=== PATIENT | female | born 2000 | race Hispanic/Latino ===

== ENCOUNTER 2024-09-02 18:54 | Emergency (ER) | payer SELFPAY ==
[~2024-09-02] VITALS: Ht 157.5 cm; Wt 122.5 kg
[2024-09-02 19:41] LABS: BASOPHILS # (AUTO) 0.05 K/uL (0.00-0.20); BASOPHILS % (AUTO) 0.5 % (0.0-5.0); EOSINOPHILS # (AUTO) 0.18 K/uL (0.00-0.70); EOSINOPHILS % (AUTO) 1.8 % (0.0-8.0); HEMATOCRIT 34.8 % (36-48); IMMATURE GRANULOCYTE ABSOLUTE 0.03 K/uL (0-1); LYMPHOCYTES # (AUTO) 2.2 K/uL (1.0-4.8); LYMPHOCYTES % (AUTO) 21.8 % (21.0-51.0); MEAN CORPUSCULAR HGB CONC 27.3 g/dL (32.0-36.0); MEAN CORPUSCULAR VOLUME 69.7 fL (79-99); MONOCYTES # (AUTO) 0.6 K/uL (0.1-1.0); MONOCYTES % (AUTO) 5.5 % (3.0-13.0); NEUTROPHILS # (AUTO) 7.2 K/uL (1.8-7.7); NEUTROPHILS % (AUTO) 70.1 % (40.0-77.0); PLATELET COUNT (AUTO) 520 K/uL (130-400); RED BLOOD CELL COUNT(AUTO) 4.99 MIL/uL (4.00-5.50); RED CELL DISTRIBUTION WIDTH 21.6 % (11.0-15.5); WHITE BLOOD COUNT (AUTO) 10.3 K/uL (4.8-10.8)
[2024-09-02 19:50] LABS: CREATININE 0.6 mg/dL (0.5-1.0); POTASSIUM 4.1 mmol/L (3.5-5.1)
[2024-09-02 20:42] VITALS: BP 113/73; PULSE 96; RESP 18; TEMP 98.7; O2SAT 99
== END 2024-09-02 20:43 | disposition home or self-care (01) ==
LOC: EDH 18:54
DX: D64.9 Anemia, unspecified (principal); N92.0 Excessive and frequent menstruation with regular cycle
CPT/HCPCS: 36415; 80048; 84702; 85025

== ENCOUNTER 2024-09-07 06:50 | Emergency (ER) | payer SELFPAY ==
[2024-09-07] MEDS: morPHINE 2 MG SYG IVP ONE (07:55)
[2024-09-07] MEDS: ondanSETRON 4MG INJ IVP ONE (07:55)
[2024-09-07] MEDS: FAMOTIDINE 20MG VIAL IV ONE (07:55)
[2024-09-07] MEDS: 0.9%NACL 1000ML 1,000 ML IV ONE (07:56)
[2024-09-07 08:10] LABS: BASOPHILS # (AUTO) 0.03 K/uL (0.00-0.20); BASOPHILS % (AUTO) 0.2 % (0.0-5.0); EOSINOPHILS # (AUTO) 0.03 K/uL (0.00-0.70); EOSINOPHILS % (AUTO) 0.2 % (0.0-8.0); HEMATOCRIT 33.9 % (36-48); IMMATURE GRANULOCYTE ABSOLUTE 0.07 K/uL (0-1); LYMPHOCYTES # (AUTO) 0.9 K/uL (1.0-4.8); MEAN CORPUSCULAR HEMOGLOBIN 18.9 pg (27.0-33.0); MEAN CORPUSCULAR HGB CONC 27.1 g/dL (32.0-36.0); MEAN CORPUSCULAR VOLUME 69.8 fL (79-99); MONOCYTES # (AUTO) 0.4 K/uL (0.1-1.0); MONOCYTES % (AUTO) 2.6 % (3.0-13.0); NEUTROPHILS # (AUTO) 13.3 K/uL (1.8-7.7); NEUTROPHILS % (AUTO) 90.5 % (40.0-77.0); PLATELET COUNT (AUTO) 535 K/uL (130-400); RED BLOOD CELL COUNT(AUTO) 4.86 MIL/uL (4.00-5.50); RED CELL DISTRIBUTION WIDTH 20.2 % (11.0-15.5); WHITE BLOOD COUNT (AUTO) 14.7 K/uL (4.8-10.8)
[2024-09-07 08:40] LABS: ALBUMIN 2.9 g/dL (3.5-5.0); BILIRUBIN,TOTAL 0.3 mg/dL (0.2-1.0); CREATININE 0.7 mg/dL (0.5-1.0); POTASSIUM 3.9 mmol/L (3.5-5.1); TOTAL PROTEIN, SERUM 8.2 g/dL (6.0-8.3)
[2024-09-07] MEDS ORDERED: ONDA-243 PO (10:18)
[2024-09-07 10:59] VITALS: BP 100/60; PULSE 70; RESP 16; TEMP 97.8; O2SAT 100
== END 2024-09-07 11:00 | disposition home or self-care (01) ==
LOC: EDH 06:50
DX: K52.9 Noninfective gastroenteritis and colitis, unspecified (principal); R10.2 Pelvic and perineal pain
CPT/HCPCS: 99285; 96374; 76705; 96361; 96375; 80053; 84702; 83690; 85025; 36415; J3490; J2270; J7030; J2405

== ENCOUNTER 2025-02-11 04:17 | Emergency (ER) | payer SELFPAY ==
[~2025-02-11] VITALS: Ht 157.5 cm; Wt 127.0 kg
[~2025-02-11 04:17] MED LIST: ONDA-243 PO
--- NOTE | 2025-02-11 04:35 | NUR ---
PT CARE ASSUMED AT THIS TIME
[2025-02-11 04:48] LABS: BASOPHILS # (AUTO) 0.05 K/uL (0.00-0.20); BASOPHILS % (AUTO) 0.4 % (0.0-5.0); EOSINOPHILS # (AUTO) 0.25 K/uL (0.00-0.70); EOSINOPHILS % (AUTO) 2.2 % (0.0-8.0); HEMATOCRIT 41.3 % (36-48); IMMATURE GRANULOCYTE ABSOLUTE 0.03 K/uL (0-1); LYMPHOCYTES # (AUTO) 2.5 K/uL (1.0-4.8); MEAN CORPUSCULAR HEMOGLOBIN 20.3 pg (27.0-33.0); MEAN CORPUSCULAR HGB CONC 29.5 g/dL (32.0-36.0); MEAN CORPUSCULAR VOLUME 68.8 fL (79-99); MONOCYTES # (AUTO) 0.6 K/uL (0.1-1.0); MONOCYTES % (AUTO) 5.6 % (3.0-13.0); NEUTROPHILS # (AUTO) 7.8 K/uL (1.8-7.7); NEUTROPHILS % (AUTO) 69.5 % (40.0-77.0); PLATELET COUNT (AUTO) 381 K/uL (130-400); RED CELL DISTRIBUTION WIDTH 18.6 % (11.0-15.5); WHITE BLOOD COUNT (AUTO) 11.2 K/uL (4.8-10.8)
[2025-02-11] MEDS: LOPERAMIDE HCL 2 MG CAP PO ONE (04:52)
[2025-02-11] MEDS: ondanSETRON 4MG INJ IVP ONE ×2 (04:52→07:11)
[2025-02-11] MEDS: morPHINE 2 MG SYG IVP ONE (04:53)
[2025-02-11] MEDS: 0.9% NACL 250ML 250 ML IV ONE (04:54)
[2025-02-11 04:56] LABS: CREATININE 0.6 mg/dL (0.5-1.0); POTASSIUM 3.4 mmol/L (3.5-5.1)
--- NOTE | 2025-02-11 04:59 | ERN ---
ED Note History of Present Illness Stated Complaint: ABD PAIN, DIARRHEA Chief Complaint: Abdominal Pain Time Seen by MD: 04:18 Dictation: This is a 24-year-old female who presented to the emergency room with complaints of upper abdominal pain and diarrhea. She stated that it started yesterday and most of her abdominal pain is in the epigastrium right upper quadrant and left upper quadrant area. She stated that she had multiple episodes of diarrhea loose stool. No fever no hematemesis or melena no other family members are sick. No history of travel or new pets at home. No weight loss loss of appetite Temperature 97 pulse 85 respirations 20 blood pressure 142/83 with a pulse oximetry of 97% on room air Allergies: Coded Allergies: No Known Allergies (Unverified Allergy, Unknown, 09/02/24) No Known Drug Allergies (Unverified Allergy, Unknown, 02/11/25) Home Meds Active Scripts Ondansetron (Ondansetron Odt) 4 Mg Tab.rapdis, 1 TAB PO Q6HPRN PRN for nausea/vomiting for 3 Days, #10 TAB 0 Refills Prov:DESMOND DELUNA DO 02/11/25 Ondansetron (Ondansetron Odt) 4 Mg Tab.rapdis, 4 MG PO BID for 5 Days, #10 TAB Prov:MICHAELA LOYOLA MD 09/07/24 Past Medical History Past Medical History: No Pertinent History, Anemia Surgical History: None Family History: Negative Social History: Negative LMP: Jan 18, 2025 RN Note Reviewed/Agreed w/PFSH: Yes Review of System Dictation Constitutional: Negative for fever,chills, and weight loss Eyes: Negative for injury, pain,redness, and discharge ENT: Negative for injury,pain or swelling Cardiovascular: Negative for chest pain, palpitations, and edema Respiratory: Negative for shortness of breath, cough, and wheezing, Abdomen/GI: Positive for abdominal pain, diarrhea, and denies constipation nausea, vomiting, she denies taking any laxatives Back: Negative for injury and pain : Negative for injury, bleeding and discharge MS/Extremity: Negative for injury and deformity Skin: Negative for rash, and discoloration Neuro: Negative for headache, weakness, numbness, tingling, and seizure Psych: Negative for suicide ideation, homicidal ideation, and hallucinations Initial Vital Sign VS Vital Signs Date Time Temp Pulse Resp B/P (MAP) Pulse Ox O2 Delivery O2 Flow Rate FiO2 02/11/25 04:18 97.2 85 20 142/83 100 Room Air 02/11/25 04:35 0 21 Physical Exam Dictation General: awake, alert, NAD extremely obese Head/Face: Normocephalic, atraumatic cushingoid Eyes: PERRL, EOMI, vision at baseline ENT: oral cavity clear, TMs clear, no signs of infection dark pigmentation below the lower lip Neck: Trachea midline, supple, no nuchal rigidity short and thick Cardiovascular: RRR, normal S1/S2, No MRGs, no JVD Respiratory: CTAB, no respiratory distress, No rales or wheezes Abdomen: Soft, mild tenderness to deep palpation of the right upper quadrant epigastrium and left upper quadrant., non-distended, normal bowel sounds, no guarding or rebound. Skin: Warm, dry, normal turgor, warty lesions with scabs-chronic per patient MS/Extremity: Pulses equal, no cyanosis, neurovascular intact, FROM Neuro: COAx4, GCS 15, strength 5/5, CN 2-12 intact, normal cerebellar exam, normal gait, Psych: Normal behavior, mood, and affect normal Extremities-trace edema without any palpable cords, Homans sign is negative Results (Laboratory/Radiology) Laboratory/Radiology Laboratory Tests Test 02/11/25 04:33 White Blood Count 11.2 K/uL (4.8-10.8) H Red Blood Count 6.00 MIL/uL (4.00-5.50) H Hemoglobin 12.2 g/dL (12.0-16.0) Hematocrit 41.3 % (36-48) Mean Corpuscular Volume 68.8 fL (79-99) L Mean Corpuscular Hemoglobin 20.3 pg (27.0-33.0) L Mean Corpuscular Hemoglobin Concent 29.5 g/dL (32.0-36.0) L Red Cell Distribution Width 18.6 % (11.0-15.5) H Platelet Count 381 K/uL (130-400) Mean Platelet Volume 9.1 fL (7.5-10.5) Immature Granulocyte % (Auto) 0.3 % (0-1) Neutrophils (%) (Auto) 69.5 % (40.0-77.0) Lymphocytes (%) (Auto) 22.0 % (21.0-51.0) Monocytes (%) (Auto) 5.6 % (3.0-13.0) Eosinophils (%) (Auto) 2.2 % (0.0-8.0) Basophils (%) (Auto) 0.4 % (0.0-5.0) Neutrophils # (Auto) 7.8 K/uL (1.8-7.7) H Lymphocytes # (Auto) 2.5 K/uL (1.0-4.8) Monocytes # (Auto) 0.6 K/uL (0.1-1.0) Eosinophils # (Auto) 0.25 K/uL (0.00-0.70) Basophils # (Auto) 0.05 K/uL (0.00-0.20) Absolute Immature Granulocyte (auto 0.03 K/uL (0-1) Nucleated Red Blood Cells 0.0 % (0.0-0.19) Red Blood Cell Morphology See comments Sodium Level 134 mmol/L (136-145) L Potassium Level 3.4 mmol/L (3.5-5.1) L Chloride Level 98 mmol/L (101-111) L Carbon Dioxide Level 31 mmol/L (21-32) Blood Urea Nitrogen 8 mg/dL (7-18) Creatinine 0.6 mg/dL (0.5-1.0) Glomerular Filtration Rate Calc 128 mL/min (>90) Random Glucose 207 mg/dL (70-105) H Total Calcium 8.9 mg/dL (8.5-10.1) Lipase 17 U/L (16-77) Labs Reviewed?: Yes ED Course ED Course Orders Procedure Category Date Status Time Cbc With Differential LAB 02/11/25 Complete 04:36 Morphine 2mg Syg PHA 02/11/25 Complete (Morphine 2mg Syg) 05:00 Ondansetron 4mg Inj PHA 02/11/25 Complete (Zofran 4mg Inj) 05:00 Lipase LAB 02/11/25 Complete 04:36 Basic Metabolic Panel LAB 02/11/25 Complete 04:36 Loperamide Hcl 2 Mg PHA 02/11/25 Complete Cap (Imodium) 05:00 0.9% Nacl 250ml (Ns PHA 02/11/25 Complete 250ml) 05:00 Ondansetron 4mg Inj PHA 02/11/25 Complete (Zofran 4mg Inj) 07:00 Morphine 4mg Syg PHA 02/11/25 Complete (Morphine 4mg Syg) 07:00 Current Medications Medications (Trade) Dose Ordered Sig/Dianna Route PRN Reason Start Time Stop Time Status Last Admin Dose Admin Loperamide HCl (Imodium) 2 mg ONCE ONCE PO 02/11/25 05:00 02/11/25 05:01 DC 02/11/25 04:52 Morphine Sulfate (morPHINE 2MG SYG) 2 mg ONCE ONCE IVP 02/11/25 05:00 02/11/25 05:01 DC 02/11/25 04:53 Morphine Sulfate (morPHINE 4MG SYG) 4 mg ONCE ONCE IVP 02/11/25 07:00 02/11/25 07:01 DC 02/11/25 07:11 Ondansetron HCl (zoFRAN 4MG INJ) 4 mg ONCE ONCE IVP 02/11/25 05:00 02/11/25 05:01 DC 02/11/25 04:52 Ondansetron HCl (zoFRAN 4MG INJ) 4 mg ONCE ONCE IVP 02/11/25 07:00 02/11/25 07:01 DC 02/11/25 07:11 Sodium Chloride 250 ml @ 0 mls/hr ONCE ONCE IV 02/11/25 05:00 02/11/25 05:01 DC 02/11/25 04:54 Vital Signs Date Time Temp Pulse Resp B/P (MAP) Pulse Ox O2 Delivery O2 Flow Rate FiO2 02/11/25 08:09 98.1 80 16 112/58 100 Room Air* 0 02/11/25 06:57 88 16 129/52 98 Room Air* 0 02/11/25 05:46 80 17 130/77 98 Room Air* 0 02/11/25 04:35 98.1 81 20 130/68 98 Room Air* 0 02/11/25 04:18 97.2 85 20 142/83 100 Room Air We will perform diagnostic labs, and administer medications according to the patient's complaint. Once the results are available, will review and personally interpreted the labs to rule out any acute life-threatening emergency the trach require immediate intervention and treatment. I will then re-evaluate the patient after treatment and diagnostic exams have return to determine whether the patient requires any further testing, can safely be discharged home or need further admission to hospital for additional treatment and evaluation. 5:21 a.m. labs reviewed CBC showed a white count of 11.2, hemoglobin 12.2 platelets 381. BNP 7 showed a sodium of 134 potassium 3.4 BUN and creatinine are 8 and 0.6. Lipase is 17. Abdominal exam is very benign, we will continue IV fluids and antidiarrheal. Medical Decision Making MDM MDM: Differential diagnosis: Gastroenteritis, colitis Rationale: Tests considered and ordered secondary to shared decision making incl ude: Previous outside records reviewed: Old ER visits. Risk of complication and/or morbidity or mortality of patient management: None Medications-Per medication reconciliation Need for hospitalization: Patient does not meet criteria for hospitalization. Need for emergency major/minor surgery: No There are no social concerns with this patient. Prescription drug management Prescriptions will include symptomatic care Patient's prior external medical records from other ER visits were reviewed by me as indicated. Prior testing and results from previous visits were reviewed. Prior tests were taken into account with medical decision making and resource utilization, independent historian/historians were used to obtain complete medical history. I independently interpreted the test that were performed, results were reviewed by me and considered findings on radiology if ordered. Medical management and examination interpretation discussions were had by me with other qualified healthcare professionals as indicated for the patient's care. Problem List Problem List: (1) Upper abdominal pain (2) Diarrhea DX & DISP Disposition: Discharge Departure Impression: Primary Impression: Acute gastroenteritis Additional Impressions: Upper abdominal pain, Diarrhea Condition: Stable Scripts Ondansetron (Ondansetron Odt) 4 Mg Tab.rapdis 1 TAB PO Q6HPRN PRN for nausea/vomiting for 3 Days, #10 TAB 0 Refills Prov: DESMOND DELUNA DO 02/11/25 Additional Instructions: Your symptoms are consistent with gastroenteritis. This is generally caused by a virus or food toxicity. This will often clear on its own with time. Your vital signs have been stable here in the ED. Your labwork (CBC, BMP, li pase) is unremarkable. I have prescribed zofran ODT. Use this medication as needed for vomiting. Drink plenty of liquids. An electrolyte solution such as gatorade is a good choice. Start with the BRAT (bananas, rice, applesauce, toast) diet. Advance your diet as tolerated. You can take over the counter tylenol or ibuprofen as needed for pain. Please follow up with your primary doctor within 2 days. Return to the ED as needed. Patient and the caregiver have been informed of all the diagnostic tests and the imaging conducted during the today's visit to the emergency room and has verbalized understanding of the results I have personally reviewed and interpreted all diagnostic exams performed here in the ER today as well as the vital signs documented by the nursing staff. The patient is now being discharged to home and should follow up with the primary care physician or the specialist as directed by the ER staff. Follow-up with primary care provider in 1 to 2 days. Take medications as directed here in the emergency room. Okay to continue home medications unless otherwise discussed during your visit in the emergency room today. Return to your nearest emergency room if symptoms worsen or if there is no improvement. Call 911 if you need immediate assistance. Take Tylenol or Motrin [id number] as needed and if no contraindications are present. Increase oral hydration. A wound culture or urine culture was ordered here in the emergency room department please follow-up with primary care provider and advise them to get repeat ports from our facility. If you had any Justino wrap/splints that were applied here, please do not remove them until you see your primary care or specialty. Referrals: SELF,REFERRAL (PCP) MARTA JOEL MD Feb 11, 2025 04:59 DESMOND DELUNA DO Feb 11, 2025 07:56
[2025-02-11] MEDS: morPHINE 4 MG SYG IVP ONE (07:11)
--- NOTE | 2025-02-11 07:19 | NUR ---
REPORT GIVEN TO CHARGE NURSE AT THIS TIME
[2025-02-11] MEDS ORDERED: ONDA-243 PO (08:01)
[2025-02-11 08:09] VITALS: BP 112/58; PULSE 80; RESP 16; TEMP 98; O2SAT 100
== END 2025-02-11 08:22 | disposition home or self-care (01) ==
LOC: EDH 04:17
DX: K52.9 Noninfective gastroenteritis and colitis, unspecified (principal); Z79.899 Other long term (current) drug therapy
CPT/HCPCS: 99285; 96374; 96375; 80048; 83690; 85025; 36415; 96376; J2270 ×2; J2405 ×2; J7050

== ENCOUNTER 2025-04-25 20:08 | Emergency (ER) | payer SELFPAY ==
[~2025-04-25] VITALS: Ht 157.5 cm; Wt 120.7 kg
--- NOTE | 2025-04-25 20:35 | ERN ---
General Chief Complaint: Vaginal Problems/Bleeding Stated Complaint: MULTIPLE Time Seen by MD: 20:10 Time Seen by Midlevel: 20:10 Source: patient History of Present Illness Initial Comments 25-year-old female who presents to the emergency department due to heavy vaginal bleeding. Patient reports it has been going off and on for the past 2-1/2 months. Patient has a history of anemia for which she takes oral iron. Patient states she has not been seen by OB and has a follow up appointment with PCP in two days. Denies any further significant past medical history. Allergies: Coded Allergies: No Known Allergies (Unverified Allergy, Unknown, 09/02/24) No Known Drug Allergies (Unverified Allergy, Unknown, 02/11/25) Home Meds Active Scripts Ondansetron (Ondansetron Odt) 4 Mg Tab.rapdis, 1 TAB PO Q6HPRN PRN for nausea/vomiting for 3 Days, #10 TAB 0 Refills Prov:DESMOND DELUNA DO 02/11/25 Ondansetron (Ondansetron Odt) 4 Mg Tab.rapdis, 4 MG PO BID for 5 Days, #10 TAB Prov:MICHAELA LOYOLA MD 09/07/24 Past Medical History Past Medical History: Anemia Past Surgical History: None Family History Family History: Negative Social History Social History: Negative Female( History) LMP: Apr 25, 2025 ROS Dictation Constitutional: Negative for fever,chills, and weight loss Eyes: Negative for injury, pain,redness, and discharge ENT: Negative for injury,pain or swelling Cardiovascular: Negative for chest pain, palpitations, and edema Respiratory: Negative for shortness of breath, cough, and wheezing, Abdomen/GI: Negative for abdominal pain, nausea, vomiting, diarrhea, and constipation Back: Negative for injury and pain : Positive for vaginal bleeding Negative for painful urination, bleeding or discharge MS/Extremity: Negative for injury and deformity Skin: Negative for rash, and discoloration Neuro: Negative for headache, weakness, numbness, tingling, and seizure Psych: Negative for suicide ideation, homicidal ideation, and hallucinations Physical Exam Physical Exam Dictation General: awake, alert, no acute distress Head/Face: Normocephalic, atraumatic Eyes: PERRL, EOMI, normal conjunctiva ENT: oral cavity clear, oral mucosa moist Neck: Supple, normal range of motion Cardiovascular: RRR, normal S1/S2 Respiratory: CTAB, no respiratory distress, no rales or wheezes Abdomen: Soft, non-tender, non-distended, normal bowel sounds, no guarding or rebound. Skin: Warm, dry, normal turgor, no rash MS/Extremity: Pulses equal, no cyanosis, neurovascular intact, FROM Neuro: COAx4, GCS 15, strength 5/5, CN 2-12 intact, normal cerebellar exam, normal gait Psych: Normal behavior, mood, and affect normal Results Laboratory and Microbiology Lab and Micro Result Laboratory Tests Test 04/25/25 20:37 04/25/25 20:44 Urine Color YELLOW (YELLOW) Urine Appearance CLOUDY (CLEAR) H Urine pH 7.0 (5.0-8.0) Urine Specific [place] 1.021 (1.001-1.031) Urine Protein 30 mg/dL (NEGATIVE) H Urine Glucose (UA) 200 mg/dL (NEGATIVE) H Urine Ketones NEGATIVE mg/dL (NEGATIVE) Urine Occult Blood LARGE (NEGATIVE) H Urine Nitrate NEGATIVE (NEGATIVE) Urine Bilirubin NEGATIVE mg/dL (NEGATIVE) Urine Urobilinogen 3 mg/dL (0.2-1.0) H Urine Leukocyte Esterase NEGATIVE [place]/uL Urine RBC >100 /HPF (0-1) H Urine WBC 2-5 /HPF (0-1) H Urine Squamous Epithelial Cells RARE /HPF (0-2) Urine Other Crystals (Auto) 12 /HPF (None Seen) Urine Bacteria RARE /HPF (None Seen) White Blood Count 12.6 K/uL (4.8-10.8) H Red Blood Count 4.20 MIL/uL (4.00-5.50) Hemoglobin 7.7 g/dL (12.0-16.0) L Hematocrit 28.2 % (36-48) L Mean Corpuscular Volume 67.1 fL (79-99) L Mean Corpuscular Hemoglobin 18.3 pg (27.0-33.0) L Mean Corpuscular Hemoglobin Concent 27.3 g/dL (32.0-36.0) L Red Cell Distribution Width 19.2 % (11.0-15.5) H Platelet Count 456 K/uL (130-400) H Mean Platelet Volume 8.9 fL (7.5-10.5) Immature Granulocyte % (Auto) 0.6 % (0-1) Neutrophils (%) (Auto) 71.0 % (40.0-77.0) Lymphocytes (%) (Auto) 21.3 % (21.0-51.0) Monocytes (%) (Auto) 5.5 % (3.0-13.0) Eosinophils (%) (Auto) 1.4 % (0.0-8.0) Basophils (%) (Auto) 0.2 % (0.0-5.0) Neutrophils # (Auto) 9.0 K/uL (1.8-7.7) H Lymphocytes # (Auto) 2.7 K/uL (1.0-4.8) Monocytes # (Auto) 0.7 K/uL (0.1-1.0) Eosinophils # (Auto) 0.18 K/uL (0.00-0.70) Basophils # (Auto) 0.03 K/uL (0.00-0.20) Absolute Immature Granulocyte (auto 0.07 K/uL (0-1) Nucleated Red Blood Cells 0.0 % (0.0-0.19) Red Blood Cell Morphology See comments Prothrombin Time 10.6 SEC (9.6-11.6) Prothromb Time International Ratio 1.00 (0.85-1.15) Activated Partial Thromboplast Time 27.4 SEC (26.3-35.5) Sodium Level 137 mmol/L (136-145) Potassium Level 3.5 mmol/L (3.5-5.1) Chloride Level 103 mmol/L (101-111) Carbon Dioxide Level 29 mmol/L (21-32) Blood Urea Nitrogen 6 mg/dL (7-18) L Creatinine 0.5 mg/dL (0.5-1.0) Glomerular Filtration Rate Calc 133 mL/min (>90) Random Glucose 176 mg/dL (70-105) H Total Calcium 8.4 mg/dL (8.5-10.1) L Iron Level 11 mcg/dL (50-170) L Total Iron Binding Capacity 410 mcg/dL (250-450) Percent Iron Saturation 2.6 % (22-44) L Serum Test, Qualitative NEGATIVE (NEGATIVE) Labs Reviewed?: Yes EKG/XRAY/US/CT/MRI Ultrasound Comment REASON: Heavy vaginal bleeding ORDERING PHYSICIAN: CHAYO DE LA PAZ PROCEDURE: PELVCOMP - US PELVIC NON-OB COMP US PELVIC NON-OB COMP HISTORY: Heavy vaginal bleeding TECHNIQUE: Real-time pelvic ultrasound was performed. FINDINGS: Uterus measures 8.1 cm. Mildly thickened endometrium measuring 3 cm in thickness. Right ovary measures 2.7 cm and left ovary measures 2.7 cm. No free fluid in the cul-de-sac. IMPRESSION: Thickened endometrium measures 3 cm which may may be related to patient's menstrual cycle. DICTATED BY: JORDY CALDERON MD DATE: 04/25/252147 [facility] MDM: Differential diagnosis: Anemia, abnormal uterine bleeding, UTI Rationale: 25-year-old female who presents to the emergency department due to heavy vaginal bleeding. Patient reports it has been going off and on for the past 2-1/2 months. Patient has a history of anemia for which she takes oral iron. Patient states she has not been seen by OB and has a follow up appointment with PCP in two days. Denies any further significant past medical history. Labs obtained indicate mild WBC elevation of 12.6, anemia with hemoglobin of 7.7, coagulation within normal limits. UA negative for urinary tract infections. Pelvic ultrasound obtained indicating thickened endometrium measuring 3 cm which may be related to patient's menstrual cycle, bilateral ovaries noted with blood flow. Patient is educated on findings and diagnosis. Patient was educated on the importance of continue taking her iron supplementa tion. Advised to follow up with PCP. Return to the emergency department if any worsening symptoms. Patient verbalized understanding. Patient stable for discharge. There are no social concerns with this patient. I independently interpreted the test that were performed, results were reviewed by me and considered findings on radiology if ordered. Medical management and examination interpretation discussions were had by me with other qualified healthcare professionals as indicated for the patient's care. ED Course Orders Procedure Category Date Status Time Cbc With Differential LAB 04/25/25 Complete 20:24 Basic Metabolic Panel LAB 04/25/25 Complete 20:24 Pt And Ptt LAB 04/25/25 Complete 20:24 Urinalysis LAB 04/25/25 Complete W/Microscopic 20:24 Testing, LAB 04/25/25 Complete Serum Hcg 20:24 Us Pelvic Non-Ob Comp US 04/25/25 Resulted 20:24 Iron Panel With %Sat LAB 04/25/25 Complete 20:28 Vital Signs Date Time Temp Pulse Resp B/P (MAP) Pulse Ox O2 Delivery O2 Flow Rate FiO2 04/25/25 22:15 98.2 81 18 118/62 98 Room Air* 0 21 04/25/25 20:49 81 18 125/67 100 Room Air* 0 21 04/25/25 20:16 98.2 101 20 124/75 98 Room Air DX & DISP Disposition: Discharge Departure Impression: Primary Impression: Anemia Additional Impression: Heavy menstrual period Condition: Stable Additional Instructions: Discharge home. Rest. Follow up with primary care in 24 hours. Return to the ER for any acute changes or worsening symptoms. If any medications were prescribed take as directed. Okay to continue home medications unless otherwise discussed during your visit in the emergency room today. Patient was also advised to follow-up with primary care physician in 1 to 2 days for continued monitoring. Referrals: SELF,REFERRAL (PCP) I performed the substantive portion of the visit. I have reviewed and personally made and approve the management plan that is documented in the notes by myself or the ARA. I acknowledge full responsibility for the patient's management plan. CHAYO DE LA PAZ Apr 25, 2025 20:35
[2025-04-25 20:54] LABS: BASOPHILS # (AUTO) 0.03 K/uL (0.00-0.20); BASOPHILS % (AUTO) 0.2 % (0.0-5.0); EOSINOPHILS # (AUTO) 0.18 K/uL (0.00-0.70); EOSINOPHILS % (AUTO) 1.4 % (0.0-8.0); HEMATOCRIT 28.2 % (36-48); IMMATURE GRANULOCYTE ABSOLUTE 0.07 K/uL (0-1); LYMPHOCYTES # (AUTO) 2.7 K/uL (1.0-4.8); LYMPHOCYTES % (AUTO) 21.3 % (21.0-51.0); MEAN CORPUSCULAR HEMOGLOBIN 18.3 pg (27.0-33.0); MEAN CORPUSCULAR HGB CONC 27.3 g/dL (32.0-36.0); MEAN CORPUSCULAR VOLUME 67.1 fL (79-99); MONOCYTES # (AUTO) 0.7 K/uL (0.1-1.0); MONOCYTES % (AUTO) 5.5 % (3.0-13.0); PLATELET COUNT (AUTO) 456 K/uL (130-400); RED CELL DISTRIBUTION WIDTH 19.2 % (11.0-15.5); WHITE BLOOD COUNT (AUTO) 12.6 K/uL (4.8-10.8)
[2025-04-25 20:59] LABS: APPEARANCE,URINE CLOUDY (CLEAR); BILIRUBIN,URINE NEGATIVE (NEGATIVE); COLOR,URINE YELLOW (YELLOW); GLUCOSE, URINE (UA) 200 mg/dL (NEGATIVE); KETONES,URINE NEGATIVE (NEGATIVE); LEUKOCYTE ESTERASE ,URINE NEGATIVE Leu/uL (NEGATIVE); NITRATE,URINE NEGATIVE (NEGATIVE); OCCULT BLOOD,URINE LARGE (NEGATIVE); PROTEIN,URINE 30 mg/dL (NEGATIVE); UROBILINOGEN,URINE 3 mg/dL (0.2-1.0)
[2025-04-25 21:01] LABS: CREATININE 0.5 mg/dL (0.5-1.0); POTASSIUM 3.5 mmol/L (3.5-5.1)
[2025-04-25 21:05] LABS: PROTHROMBIN TIME 10.6 SEC (9.6-11.6)
[2025-04-25 21:06] LABS: PARTIAL THROMBOPLASTIN TIME 27.4 SEC (26.3-35.5)
[2025-04-25 21:10] LABS: % IRON SATURATION 2.6 % (22-44)
[2025-04-25 21:22] LABS: BACTERIA,URINE RARE /HPF (None Seen); MUCUS,URINE RARE LPF (None Seen); RBC,URINE >100 /HPF (0-1); SQUAMOUS EPITHELIAL CELL,UR RARE /HPF (0-2); UNCLASSIFIED CRYSTAL 12 /HPF (None Seen)
--- NOTE | 2025-04-25 21:51 | HMCIMG ---
US PELVIC NON-OB COMP HISTORY: Heavy vaginal bleeding TECHNIQUE: Real-time pelvic ultrasound was performed. FINDINGS: Uterus measures 8.1 cm. Mildly thickened endometrium measuring 3 cm in thickness. Right ovary measures 2.7 cm and left ovary measures 2.7 cm. No free fluid in the cul-de-sac. IMPRESSION: Thickened endometrium measures 3 cm which may may be related to patient's menstrual cycle.
[2025-04-25 22:15] VITALS: BP 118/62; PULSE 81; RESP 18; TEMP 98.2; O2SAT 98
== END 2025-04-25 22:18 | disposition home or self-care (01) ==
LOC: EDH 20:08
DX: D64.9 Anemia, unspecified (principal); N92.0 Excessive and frequent menstruation with regular cycle; Z79.899 Other long term (current) drug therapy
CPT/HCPCS: 36415; 76856; 80048; 81001; 83540; 83550; 84703; 85025; 85610; 85730; 99284

== ENCOUNTER 2025-11-09 10:46 | Emergency (ER) | payer SELFPAY ==
[~2025-11-09] VITALS: Ht 157.5 cm; Wt 118.4 kg
[2025-11-09 11:22] LABS: IMMATURE GRANULOCYTE ABSOLUTE 0.05 K/uL (0-1); NUCLEATED RED BLOOD CELLS 0.0 % (0.0-0.19); PLATELET COUNT (AUTO) 425 K/uL (130-400); RED BLOOD CELL COUNT(AUTO) 5.09 MIL/uL (4.00-5.50); RED CELL DISTRIBUTION WIDTH 20.8 % (11.0-15.5); WHITE BLOOD COUNT (AUTO) 12.5 K/uL (4.8-10.8)
[2025-11-09] MEDS: 0.9%NACL 1000ML 1,000 ML IV STA (11:22)
[2025-11-09 11:33] LABS: CREATININE 0.6 mg/dL (0.5-1.0); GLOMERULAR FILTR. RATE CALC 128.0 mL/min (>90); GLUCOSE,RANDOM 178.0 mg/dL (70-105); SODIUM SERUM 136.0 mmol/L (136-145); UREA NITROGEN, BLOOD 7.0 mg/dL (7-18)
[2025-11-09 11:43] LABS: ASPARTATE AMINOTRANSFERASE 43.0 U/L (10-37); HCG,QUANTITATIVE 0.0 mIU/mL (0-5); TOTAL PROTEIN, SERUM 7.9 g/dL (6.0-8.3)
[2025-11-09 13:24] LABS: APPEARANCE,URINE CLEAR (CLEAR); GLUCOSE, URINE (UA) NEGATIVE (NEGATIVE); LEUKOCYTE ESTERASE ,URINE NEGATIVE Leu/uL (NEGATIVE); NITRATE,URINE NEGATIVE (NEGATIVE); OCCULT BLOOD,URINE NEGATIVE (NEGATIVE)
[2025-11-09 13:32] LABS: ADD UA MICROSCOPIC YES
[2025-11-09 13:36] LABS: SQUAMOUS EPITHELIAL CELL,UR RARE /HPF (0-2)
--- NOTE | 2025-11-09 14:15 | HMCIMG ---
EXAM: US Abdomen, Right Upper Quadrant. CLINICAL HISTORY: ruq pain w/ vomiting TECHNIQUE: Right upper quadrant sonography performed with image documentation. COMPARISON: None provided. FINDINGS: LIVER: Liver measures approximately 14 cm in craniocaudal length. Diffuse increased echogenicity is noted, consistent with hepatic steatosis. No focal hepatic mass is seen. GALLBLADDER: Gallbladder wall thickness measures approximately 2 mm. No definite gallstones are visualized. COMMON BILE DUCT: CBD is obscured on the present examination. PANCREAS: The visualized pancreas appears within normal limits. Distal pancreas is obscured by bowel gas. RIGHT KIDNEY: Right kidney measures approximately 12.9 5.8 6.2 cm. Normal renal contours are maintained. No renal mass, calculus, or hydronephrosis is seen. IMPRESSION: Diffuse hepatic steatosis. Limited examination due to large body habitus. /[place]
--- NOTE | 2025-11-09 14:19 | ERN ---
ED Note History of Present Illness Stated Complaint: NAUSEA, VOMITING, DIARRHEA, ABDOMINAL PAIN Chief Complaint: Nausea,Vomiting,Diarrhea Time Seen by MD: 10:49 Time Seen by Midlevel: 10:52 Dictation: 25-year-old female coming in with complaining of right epigastric pain radiating to the epigastric region for three days with nausea and vomiting. Patient also states last Friday she got her 1st shot of Ozempic. Patient states she has a history of diabetes and anemia. LMP last week. Now diarrhea no chest pain or chest discomfort. Allergies: Coded Allergies: No Known Allergies (Unverified Allergy, Unknown, 09/02/24) No Known Drug Allergies (Unverified Allergy, Unknown, 02/11/25) Home Meds Active Scripts Ondansetron (Ondansetron Odt) 4 Mg Tab.rapdis, 1 TAB PO Q6HPRN PRN for nausea/vomiting for 3 Days, #10 TAB 0 Refills Prov:DESMOND DELUNA DO 02/11/25 Ondansetron (Ondansetron Odt) 4 Mg Tab.rapdis, 4 MG PO BID for 5 Days, #10 TAB Prov:MICHAELA LOYOLA MD 09/07/24 Past Medical History Past Medical History: Anemia, Diabetes-Type II Surgical History: None Family History: Negative Social History: Negative Review of System Dictation Constitutional: Negative for fever,chills, and weight loss Eyes: Negative for injury, pain,redness, and discharge ENT: Negative for injury,pain or swelling Cardiovascular: Negative for chest pain, palpitations, and edema Respiratory: Negative for shortness of breath, cough, and wheezing, Abdomen/GI: Epigastric pain, right upper quadrant pain with nausea and vomiting Back: Negative for injury and pain : Negative for injury, bleeding and discharge MS/Extremity: Negative for injury and deformity Skin: Negative for rash, and discoloration Neuro: Negative for headache, weakness, numbness, tingling, and seizure Psych: Negative for suicide ideation, homicidal ideation, and hallucinations Review of Systems: was completed Initial Vital Sign VS Vital Signs Date Time Temp Pulse Resp B/P (MAP) Pulse Ox O2 Delivery O2 Flow Rate FiO2 11/09/25 10:47 98.2 77 16 112/73 96 Room Air 0 11/09/25 14:07 21 Physical Exam Dictation General: awake, alert, NAD Head/Face: Normocephalic, atraumatic Eyes: PERRL, EOMI, vision at baseline ENT: oral cavity clear, TMs clear, no signs of infection Neck: Trachea midline, supple, no nuchal rigidity Cardiovascular: RRR, normal S1/S2, No MRGs, no JVD Respiratory: CTAB, no respiratory distress, No rales or wheezes Abdomen: Soft, non-tender, non-distended, normal bowel sounds, no guarding or rebound. Skin: Warm, dry, normal turgor, no rash MS/Extremity: Pulses equal, no cyanosis, neurovascular intact, FROM Neuro: COAx4, GCS 15, strength 5/5, CN 2-12 intact, normal cerebellar exam, normal gait, Psych: Normal behavior, mood, and affect normal Results (Laboratory/Radiology) Laboratory/Radiology Laboratory Tests Test 11/09/25 11:19 11/09/25 13:00 White Blood Count 12.5 K/uL (4.8-10.8) H Red Blood Count 5.09 MIL/uL (4.00-5.50) Hemoglobin 9.5 g/dL (12.0-16.0) L Hematocrit 35.3 % (36-48) L Mean Corpuscular Volume 69.4 fL (79-99) L Mean Corpuscular Hemoglobin 18.7 pg (27.0-33.0) L Mean Corpuscular Hemoglobin Concent 26.9 g/dL (32.0-36.0) L Red Cell Distribution Width 20.8 % (11.0-15.5) H Platelet Count 425 K/uL (130-400) H Mean Platelet Volume 9.2 fL (7.5-10.5) Immature Granulocyte % (Auto) 0.4 % (0-1) Neutrophils (%) (Auto) 90.6 % (40.0-77.0) H Lymphocytes (%) (Auto) 6.1 % (21.0-51.0) L Monocytes (%) (Auto) 2.4 % (3.0-13.0) L Eosinophils (%) (Auto) 0.2 % (0.0-8.0) Basophils (%) (Auto) 0.3 % (0.0-5.0) Neutrophils # (Auto) 11.4 K/uL (1.8-7.7) H Lymphocytes # (Auto) 0.8 K/uL (1.0-4.8) L Monocytes # (Auto) 0.3 K/uL (0.1-1.0) Eosinophils # (Auto) 0.03 K/uL (0.00-0.70) Basophils # (Auto) 0.04 K/uL (0.00-0.20) Absolute Immature Granulocyte (auto 0.05 K/uL (0-1) Nucleated Red Blood Cells 0.0 % (0.0-0.19) White Cell Morphology Comment See comments Red Blood Cell Morphology See comments Sodium Level 136 mmol/L (136-145) Potassium Level 3.9 mmol/L (3.5-5.1) Chloride Level 102 mmol/L (101-111) Carbon Dioxide Level 26 mmol/L (21-32) Blood Urea Nitrogen 7 mg/dL (7-18) Creatinine 0.6 mg/dL (0.5-1.0) Glomerular Filtration Rate Calc 128 mL/min (>90) Random Glucose 178 mg/dL (70-105) H Total Calcium 8.6 mg/dL (8.5-10.1) Total Bilirubin 0.3 mg/dL (0.2-1.0) Direct Bilirubin 0.1 mg/dL (0.0-0.3) Aspartate Amino Transf (AST/SGOT) 43 U/L (10-37) H Alanine Aminotransferase (ALT/SGPT) 30 U/L (12-78) Alkaline Phosphatase 90 U/L (50-136) Total Protein 7.9 g/dL (6.0-8.3) Albumin 2.5 g/dL (3.5-5.0) L Lipase 21 U/L (16-77) Human Chorionic Gonadotropin, Quant 0 mIU/mL (0-5) Urine Color YELLOW (YELLOW) Urine Appearance CLEAR (CLEAR) Urine pH 6.5 (5.0-8.0) Urine Specific Outlook 1.015 (1.001-1.031) Urine Protein 20 mg/dL (NEGATIVE) H Urine Glucose (UA) NEGATIVE mg/dL (NEGATIVE) Urine Ketones NEGATIVE mg/dL (NEGATIVE) Urine Occult Blood NEGATIVE (NEGATIVE) Urine Nitrate NEGATIVE (NEGATIVE) Urine Bilirubin NEGATIVE mg/dL (NEGATIVE) Urine Urobilinogen 0.2 mg/dL (0.2-1.0) Urine Leukocyte Esterase NEGATIVE [place]ley/uL Urine RBC None /HPF (0-1) Urine WBC 2-5 /HPF (0-1) H Urine Squamous Epithelial Cells RARE /HPF (0-2) Urine Bacteria RARE /HPF (None Seen) Labs Reviewed?: Yes ED Course ED Course Orders Procedure Category Date Status Time Cbc With Differential LAB 11/09/25 Complete 10:53 Basic Metabolic Panel LAB 11/09/25 Complete 10:53 Lipase LAB 11/09/25 Complete 10:53 Hepatic Function Panel LAB 11/09/25 Complete 10:53 Urinalysis Profile LAB 11/09/25 Complete 10:53 Hcg,Quantitative LAB 11/09/25 Complete 10:53 0.9%Nacl 1000ml (Ns PHA 11/09/25 In Process 1000ml) 10:53 Ondansetron 4mg Inj PHA 11/09/25 Complete (Zofran 4mg Inj) 11:00 Us Abdominal Ruq\Ltd US 11/09/25 Taken 12:45 Current Medications Medications (Trade) Dose Ordered Sig/Dianna Route PRN Reason Start Time Stop Time Status Last Admin Dose Admin Ondansetron HCl (zoFRAN 4MG INJ) 4 mg ONCE ONCE IVP 11/09/25 11:00 11/09/25 11:01 DC 11/09/25 11:22 Sodium Chloride 1,000 ml @ 100 mls/hr Q10H STAT IV 11/09/25 10:53 11/09/25 20:52 11/09/25 11:22 Vital Signs Date Time Temp Pulse Resp B/P (MAP) Pulse Ox O2 Delivery O2 Flow Rate FiO2 11/09/25 14:07 98.1 78 16 110/59 99 Room Air* 0 21 11/09/25 10:47 98.2 77 16 112/73 96 Room Air 0 Medical Decision Making MDM MDM: 25-year-old female coming in with complaining of right epigastric pain radi ating to the epigastric region for three days with nausea and vomiting. Patient also states last Friday she got her 1st shot of Ozempic. Patient states she has a history of diabetes and anemia. LMP last week. Now diarrhea no chest pain or chest discomfort.CBC shows a white count until this could be related to inflammatory response versus infection, hemoglobin is 9 and hematocrit of 35, patient does has a history of anemia. No thrombocytopenia. Chemistry shows no electrolyte abnormality. Normal kidney function. No transaminitis. Lipase within normal range. T bili within normal range. Patient isn't . Isn't evidence of urinary tract infection. Preliminary report of ultrasound shows a fatty liver, gallbladder wall of 2 mm, CBD obscured. within normal limits. Discussed with the patient on findings educated of the more than likely patient has a FX from Ozempic as well as possibly gastritis. Educated to avoid eating any spicy, greasy foods follow up with her PCP regarding her side effects to the medication. Differential diagnosis: Types, medication reaction, cholecystitis, cholelithiasis Rationale: Tests considered and ordered secondary to shared decision making include: Previous outside records reviewed: Old ER visits. Risk of complication and/or morbidity or mortality of patient management: None Medications-Per medication reconciliation Need for hospitalization: Patient does not meet criteria for hospitalization. Need for emergency major/minor surgery: No There are no social concerns with this patient. Prescription drug management Prescriptions will include symptomatic care Patient's prior external medical records from other ER visits were reviewed by me as indicated. Prior testing and results from previous visits were reviewed. Prior tests were taken into account with medical decision making and resource utilization, independent historian/historians were used to obtain complete medical history. I independently interpreted the test that were performed, results were reviewed by me and considered findings on radiology if ordered. Medical management and examination interpretation discussions were had by me with other qualified healthcare professionals as indicated for the patient's care. DX & DISP Disposition: Discharge Departure Impression: Primary Impression: Acute gastroenteritis Additional Impressions: Medication side effect, Fatty liver Condition: Stable Additional Instructions: Follow up with your PCP regarding a possible side effects of Ozempic. Avoid eating any spicy, greasy or fatty foods. Return to the hospital if any worsening symptoms. Referrals: SELF,REFERRAL (PCP) Time of Disposition: 14:18 I have reviewed the case, and I agree with, Diagnosis and Plan [facility] Nov 09, 2025 14:19
[2025-11-09 15:17] VITALS: BP 122/67; PULSE 79; RESP 16; TEMP 98; O2SAT 97
== END 2025-11-09 15:18 | disposition home or self-care (01) ==
LOC: EDH 10:46
DX: K52.9 Noninfective gastroenteritis and colitis, unspecified (principal); T50.995A Adverse effect of other drugs, medicaments and biological substances, initial encounter; K76.0 Fatty (change of) liver, not elsewhere classified; E11.9 Type 2 diabetes mellitus without complications; Y92.89 Other specified places as the place of occurrence of the external cause
CPT/HCPCS: 99285; 96374; 76705; 80076; 80048; 84702; 83690; 85025; 81001; 36415; J7030; J2405